=== PATIENT | male | born 1975 | race Caucasian/White ===

== ENCOUNTER 2023-06-16 14:48 | Emergency (ER) | payer OTHER, SELFPAY ==
[2023-06-16 14:55] VITALS: BP 136/82; PULSE 77; RESP 18; TEMP 36.3; O2SAT 97
--- NOTE | 2023-06-16 15:08 | ECG_ITS ---
Measurements Intervals [place] Rate: 73 P: 57 SC: 174 QRS: -11 QRSD: 109 T: 14 QT: 370 QTc: 409 Interpretive Statements SINUS RHYTHM NO PREVIOUS ECG AVAILABLE FOR COMPARISON Electronically Signed On 06-17-2023 10:25:11 [employer] by Elia Mei M.D.
--- NOTE | 2023-06-16 15:17 | ED.GENADULT ---
HPI - General Adult General Chief complaint: Shortness of Breath/Dyspnea Stated complaint: Shortness Of Breath Time Seen by Provider: 06/16/23 15:05 Source: patient, RN notes reviewed and old records reviewed Mode of arrival: ambulatory Limitations: no limitations History of Present Illness HPI narrative: 47-year-old male patient presents to [facility] with complaint of heart fluttering/ palpitations on and off since last p.m. Patient states that earlier today became very lightheaded. Patient denies cough congestion, shortness of breath, recent illnesses. Patient denies any past medical history. Related Data Home Medications Medication Instructions Recorded Confirmed No Home Medications 06/16/23 06/16/23 Allergies Allergy/AdvReac Type Severity Reaction Status Date / Time No Known Allergies Allergy Verified 06/16/23 15:11 Review of Systems Constitutional: Constitutional: Reports no additional constitutional complaints Eyes: Eyes: Reports no additional eye complaints ENT: Reports system reviewed and no additional complaints, except as documented Cardiovascular: Cardiovascular: Reports as per HPI Comments: heart palpitations/fluttering Respiratory: Respiratory: Reports no additional respiratory complaints, Denies cough and Denies dyspnea Neurologic: Reports dizziness PMFSH Comments At the time of my signature, I reviewed and agree with the nursing past medical, surgical, social, and family history. There is no relevant family history pertinent to the patient complaint. Exam Const: General: cooperative, healthy appearing, no acute distress and well nourished Nutritional Appearance: well nourished Orientation/consciousness: patient oriented x3 Limitations: no limitations HENMT: Head: normal to inspection and normocephalic Ears: external ears normal, TM's normal bilaterally, mastoids normal and Abnormal EAC present Face/Nose/Sinus: normal facial exam Face and sinus: normal facial exam Mouth: Yes Normal oral and palatal mucosa present, Yes oropharynx normal and Yes moist mucous membranes Throat: posterior oropharynx normal, tonsils normal, uvula midline and no uvular edema Eyes: General: appearance normal, both eyes and all related structures Sclera: sclerae normal Pupils: Equal, round and reactive pupils present Resp: Effort & Inspection: normal respiratory effort, able to speak in complete sentences, no audible wheezes, no cough, no respiratory distress and no retractions Auscultation: clear to auscultation bilaterally, no crackles, no rales, no rhonchi and no wheezes Cardio: Rate: regular rate Rhythm: regular rhythm Skin: General skin exam: normal color and no rashes or lesions noted Neuro: General: patient oriented x3 Cranial nerves: Yes Equal, round and reactive pupils present Psych: Appearance: grossly normal Course Course Emergency Course: Some parts of this dictation were generated by voice recognition software and may contain typographical and/or grammatical inaccuracies. Level of Care: Express Care Visit Vital Signs Vital signs: Vital Signs Temperature 97.4 F L 06/16/23 14:55 Pulse Rate 77 06/16/23 14:55 Respiratory Rate 18 06/16/23 14:55 Blood Pressure 136/82 06/16/23 14:55 Pulse Oximetry 97 06/16/23 14:55 Oxygen Delivery Room Air 06/16/23 14:55 Temperature 97.4 F L 06/16/23 14:55 Pulse Rate 77 06/16/23 14:55 Respiratory Rate 18 06/16/23 14:55 Blood Pressure 136/82 06/16/23 14:55 Pulse Oximetry 97 06/16/23 14:55 Oxygen Delivery Room Air 06/16/23 14:55 Reviewed Transfer Transfered to: [facility] Transfer rationale: heart flutter/palpitations and lightheadedness Accepting physician: report called to Alfie PARKER at [facility] Emergency Room with accepting physikcian Dr. Kenyon Transfer comments: patient to ER via private vehicle accompanied by Medical Decision Making MDM Narrative Medical
--- NOTE | 2023-06-16 15:44 | ED.PROGRESS ---
Subjective Date/time seen: 06/16/23 15:44 Interval history: EKG completed at 3:06 p.m. on June 16, 2023 EKG shows normal sinus rhythm without ectopy ventricular rate 73 IN interval 174 QRS duration 109 Objective Data Vital Signs Vital Signs: Vital Signs - 24 hr 06/16/23 14:55 Temperature 97.4 F L Pulse Rate 77 Respiratory Rate 18 Blood Pressure 136/82 Pulse Oximetry 97 Oxygen Delivery Room Air
== END 2023-06-16 15:20 | disposition short-term general hospital (02) ==
PROVIDERS: Emergency Provider Registered Nurse; PCP Internal Medicine
DX: R00.2 Palpitations (principal); R42 Dizziness and giddiness
CPT/HCPCS: 93005; 99203; G0463